=== PATIENT | female | born 1990 | race Hispanic/Latino ===

== ENCOUNTER 2017-05-05 04:59 | Emergency (ER) | payer SELFPAY ==
[2017-05-05 05:31] LABS: #Eosinphils 0.1 thou/uL (0.0-0.7); #Monocytes 0.5 thou/uL (0.11-0.59); #Neutrophils 4.1 thou/uL (1.40-6.50); %Basophils 0.7 % (0.0-1.0); %Eosinophils 2.2 % (0.0-10.0); %Lymphocytes 29.7 % (21.0-51.0); Hematocrit 42.5 % (36.0-47.0); Mean Platelet Volume 7.8 fL (7.4-10.4); Red Blood Cell (RBC) Count 4.84 mill/uL (4.20-5.40); White Blood Cell (WBC) Count 6.7 thou/uL (4.8-10.8)
[2017-05-05 05:33] LABS: Bilirubin Negative (Negative); Blood, Urine Negative (Negative); Glucose, Urine (Dipstick) Negative (Negative); Ketone, Urine Negative (Negative); Nitrite Negative (Negative); Protein, Urine (Dipstick) Negative (Neg-Trace); Urobilinogen 0.2 mg/dL (0.2-1.0)
[2017-05-05] MEDS ORDERED: Ondansetron HCl/PF 4 MG/2 ML Vial ONE (05:45)
[2017-05-05 05:53] LABS: ALT (SGPT) 130 U/L (8-55); AST (SGOT) 65 U/L (5-34); Alkaline Phosphatase 107 U/L (40-150); Anion Gap 13 mmol/L (10-20); BUN (Urea Nitrogen) 13 mg/dL (7.0-18.7); Bilirubin, Total 0.4 mg/dL (0.2-1.2); Calc. Creatinine Clearance 0 mL/min (70-130); Calcium 9.9 mg/dL (7.8-10.44); Carbon Dioxide 26 mmol/L (22-29); Chloride 104 mmol/L (98-107); Estimated GFR-MDRD 87; Globulin 3.1 g/dL (2.4-3.5); Lipase 49 U/L (8-78); Protein, Total 7.7 g/dL (6.0-8.3)
[2017-05-05] MEDS ORDERED: Famotidine 20 MG TAB ONE (06:00)
--- NOTE | 2017-05-05 08:28 | ULT ---
PRELIMINARY REPORT/[facility]/EMERGENCY AFTER HOURS PROCEDURE: EXAM: US Abdomen Limited, Right Upper Quadrant CLINICAL HISTORY: The patient is a 26 years female; Pain; Other: Upper abd pain TECHNIQUE: Real-time ultrasound of the right upper quadrant with image documentation. COMPARISON: No relevant prior studies available. FINDINGS: Liver: Unremarkable. No mass. No intrahepatic bile duct dilation. Gallbladder: Gallbladder normal in size. No stones. Normal wall thickness with no pericholecystic fl uid. Sonographic Varma's sign reportedly negative. Common duct: Unremarkable as visualized, 4 mm at the liver hilum. Pancreas: Unremarkable as visualized. Right kidney: The right kidney measures 11.0 x 3.5 x 5.1 cm with normal cortical thickness and echog enicity. No hydronephrosis. No visualized stones or lesions. Free fluid: None. IMPRESSION: 1. Normal right upper quadrant ultrasound. Thank you for allowing us to participate in the care of your patient. Dictated and Authenticated by: Nilson Titus MD 05/05/2017 7:03 AM Central Time ([place] \T\ [place]) FINAL REPORT EMERGENCY AFTER HOURS RIGHT UPPER QUADRANT ABDOMINAL ULTRASOUND: Date: 05/05/17 FINDINGS/IMPRESSION: I agree with the findings and impression given in the preliminary report per [facility] physician. No sign ificant right upper quadrant abdominal abnormality. POS: [facility]
== END 2017-05-05 06:46 | disposition home or self-care (01) ==
LOC: ERS 04:59
DX: K75.9 Inflammatory liver disease, unspecified (principal)
CPT/HCPCS: 76705; 80053; 81003; 83690; 84703; 85025; 96360; J2270; J2405